=== PATIENT | male | born 1975 | race Two or more races ===

== ENCOUNTER 2021-08-12 11:25 | Emergency (ER) | payer OTHER, MEDICAID ==
[~2021-08-12] VITALS: Ht 172.7 cm; Wt 113.4 kg
[2021-08-12 12:09] VITALS: BP 124/72
[2021-08-12] MEDS ORDERED: LIDOCAINE 1% HCL (LOCAL ANESTH.) INJ 20ML MDV IJ ONE (12:15)
[2021-08-12] MEDS ORDERED: TETANUS-DIPTH-ACEL PERTUSSIS 0.5ML SYR Tdap IM ONE (12:15)
[2021-08-12] MEDS ORDERED: IBUP600T27 PO (13:08)
[2021-08-12] MEDS ORDERED: CEPH500C PO (13:08)
== END 2021-08-12 13:22 | disposition home or self-care (01) ==
LOC: ER 11:25
DX: S51.811A Laceration without foreign body of right forearm, initial encounter (principal); E03.9 Hypothyroidism, unspecified; Z79.1 Long term (current) use of non-steroidal anti-inflammatories (NSAID); Z79.899 Other long term (current) drug therapy; W01.198A Fall on same level from slipping, tripping and stumbling with subsequent striking against other object, initial encounter; Y92.89 Other specified places as the place of occurrence of the external cause; Y93.89 Activity, other specified; Y99.8 Other external cause status
CPT/HCPCS: 12004; 90471; 90715; 99283; J2001

== ENCOUNTER 2022-03-25 09:04 | Emergency (ER) | payer OTHER, MEDICAID ==
[~2022-03-25] VITALS: Ht 172.7 cm; Wt 131.0 kg
[~2022-03-25 09:04] MED LIST: CEPH500C PO; IBUP600T27 PO
[2022-03-25 09:20] VITALS: BP 114/77
[2022-03-25] MEDS ORDERED: IBUP800T27 PO (10:00)
[2022-03-25] MEDS ORDERED: IBUPROFEN 800 MG TAB PO ONE (10:00)
== END 2022-03-25 10:51 | disposition home or self-care (01) ==
LOC: ER 09:04
DX: S93.401A Sprain of unspecified ligament of right ankle, initial encounter (principal); F20.9 Schizophrenia, unspecified; W06.XXXA Fall from bed, initial encounter; Y93.89 Activity, other specified; Y92.89 Other specified places as the place of occurrence of the external cause; Y99.8 Other external cause status
CPT/HCPCS: 73610